=== PATIENT | female | born 1975 | race Caucasian/White ===

== ENCOUNTER 2016-09-29 10:28 | Emergency (ER) | payer BC ==
[~2016-09-29] VITALS: Ht 172.7 cm; Wt 109.5 kg
[2016-09-29 10:35] VITALS: Ht 172.7 cm; Wt 109.5 kg
[2016-09-29] MEDS ORDERED: HYD25 PO (11:16)
--- NOTE | 2016-09-29 11:26 | ERD ---
ER Documentation Chief Complaint Date/Time DATE: 09/29/16 TIME: 11:23 Chief Complaint headache x 4 days states has had elevated bp at home HPI 41-year-old female complains of headache for the past 4 days, and she states that she has had elevated blood pressure readings at home. Patient describes as heaviness on the left side and top of her head, she states it is associated with stress that she often takes her blood pressure several times throughout the day. She reports her blood pressure over the last day the readings have been 159/125, 160/118, and the highest was 200/129. Her most recent blood pressure reading was about 140/90 which she states that is her normal baseline. She states that she has currently been under a lot of stress. She reports that her blood pressure has been high in the past, once when she had a traumatic injury in the hospital, and she was just at the [employer] office last week. She has tried losing weight, and had made some small dietary changes including decreasing salt. She has an appointment to see a primary care doctor tomorrow to be seen, possibly talk about starting medication. She has not ever been on antihypertensive agents. She denies any blurred vision, nausea, chest pain, shortness of breath. ROS All systems reviewed and are negative except as per history of present illness. Medications Home Meds Active Scripts Hydrochlorothiazide* (Hydrochlorothiazide*) 25 Mg Tab, 25 MG PO DAILY, #2 TAB Prov:JOSHUA DELUCA PA-C 09/29/16 PMhx/Soc Hx Neurological Disorder: Yes (GONSALEZ X 4DAYS) Hx Alcohol Use: No Hx Substance Use: No Hx Tobacco Use: No Smoking Status: Never smoker Physical Exam Vitals Vital Signs Date Time Temp Pulse Resp B/P Pulse Ox O2 Delivery O2 Flow Rate FiO2 09/29/16 10:35 98.1 74 18 136/87 98 Physical Exam General: Well-developed, well-nourished. The patient appears in no acute distress. HEENT: Head is normocephalic, atraumatic. No scleral icterus. Pupils are equal , round, and reactive. Neck: Supple. Nontender. Lungs: Clear to auscultation. Normal air movement. Heart: Regular rate and rhythm. S1 and S2 are normal. No murmurs, gallops, or rubs. Abdomen: Soft, nontender, nondistended. Bowel sounds are normoactive. Extremities: No clubbing or cyanosis. Normal pulses. Moving extremities x 4. No weakness. Neuro: M/S: Alert and oriented Face: EOMI, CN II-XII grossly intact Motor: Normal strength throughout Sensation: Normal sensation throughout Speech: Normal Cerebel: Normal coordination Normal gait Normal finger to nose DTR: 2+ and symmetric upper/lower extremities Skin: Normal turgor. No rash or lesions. Procedures/MDM 41-year-old female comes in with elevated blood pressure, differentials considered include hypertension controlled versus uncontrolled, hypertensive urgency and emergency. Her headache does not appear to be concerning, she does not show any signs of any urgency or emergency. Her blood pressure of 136/87 was discussed that we would not treat this given her baseline is normally around 140/80-90. She does request medication at this time, I have offered her alternatives including lifestyle changes, weight loss, exercise. She is persisting that she will need medication over the next day until she sees her primary care physician, she will be given a short course of hydrochlorothiazide she is to speak to her primary care doctor whether or not she is continue medication or try alternative lifestyle changes. In the meantime she was asked to check her blood pressure no more than once a day, in the morning and she was asked to cut out caffeinated beverages as well. Headache is likely tension related, I doubt stroke, TIA, subarachnoid hemorrhage, hypertensive emergency, encephalitis, meningitis and among others were part of my differential diagnosis. Patient's blood pressure was elevated (>120/80) but appears stable without evidence of hypertension emergency or urgency. The patient was counseled about the risks of hypertension and urged to pursue outpatient monitoring and therapy within a week with their primary care physician. Departure Diagnosis: Primary Impression: Headache Additional Impression: Elevated blood pressure reading Condition: Good Patient Instructions: Self-Care for Headaches, High Blood Pressure ( Hypertension) Additional Instructions: FOLLOW UP WITH YOUR PRIMARY CARE PHYSICIAN TOMORROW.Return to this facility if you are not improving as expected. JOSHUA DELUCA PA-C September 29, 2016 11:26
== END 2016-09-29 11:50 | disposition home or self-care (01) ==
LOC: FTE 10:28
DX: R51 Headache (principal); R03.0 Elevated blood-pressure reading, without diagnosis of hypertension
CPT/HCPCS: 99283